=== PATIENT | male | born 1955 | race Caucasian/White ===

== ENCOUNTER 2018-04-24 20:07 | Inpatient (IN) ==
[2018-04-24] MEDS ORDERED: ONDANSETRON 4 MG/2 ML VIAL IV PRN (22:25)
[2018-04-24] MEDS ORDERED: ACETAMINOPHEN 325 MG TABLET PO PRN (22:25)
[2018-04-24] MEDS ORDERED: METOPROLOL TARTRATE 5 MG/5 ML VIAL IV ONE (23:00)
[2018-04-24] MEDS ORDERED: FUROSEMIDE 40 MG/4 ML VIAL IV ONE (23:00)
[2018-04-24] MEDS ORDERED: LEVOFLOXACIN INJ 750 MG in PREMIX 1 EACH IV SCH (23:00)
[2018-04-24] MEDS ORDERED: ALBUTEROL/IPRATROPIUM 3 ML NEB RESP TX PRN (23:05)
[2018-04-24] MEDS: CLINDAMYCIN INJ 600 MG in PREMIX 1 EACH IV SCH (23:19)
[2018-04-24] MEDS: PANTOPRAZOLE 40 MG VIAL IV SCH (23:54)
[2018-04-25] MEDS ORDERED: DILTIAZEM 50 MG/10 ML VIAL IV ONE (01:00)
[2018-04-25] MEDS ORDERED: DILTIAZEM INJ 100 MG in SODIUM CHLORIDE 0.9% 100 ML IV SCH (04:30)
[2018-04-25 05:21] LABS: Basophils % 0.1 % (0.0-0.8); Hematocrit 35.6 VOL% (42.0-52.0); Hemoglobin 11.8 GM/DL (14.0-18.0); Immature Granulocytes % 0.6 %; Immature Granulocytes Absolute 0.07 #; Lymphocytes # 0.9 10*3/uL (1.4-4.0); Lymphocytes % 8.6 % (21.2-54.2); Mean Corpuscular HGB Conc 33.1 GM/DL (32-36); Mean Corpuscular Hemoglobin 32 PG (27-34); Mean Corpuscular Volume 95.2 FL (87-102); Mean Platelet Volume 9.8 FL (9.6-12.0); Monocytes % 8.8 % (1.7-12.7); Neutrophils # 8.9 10*3/uL (1.4-7.4); Neutrophils % 81.9 % (38.7-73.9); Platelet Count 192 T/CUMM (130-400); Red Blood Count 3.74 MC/CUMM (3.8-5.5); Red Cell Distribution Width 13.5 % (9.3-17.3); White Blood Count 10.9 T/CUMM (4-12)
[2018-04-25 05:49] LABS: Bilirubin,Total 0.7 MG/DL (0.2-1.0); Calcium 8.8 MG/DL (8.5-10.1); Total Protein 6.2 G/DL (6.4-8.3)
[2018-04-25 05:50] LABS: Osmolality,Calculated 284.5 MOS/KG (273-304); Potassium 3.9 MMOL/L (3.5-5.1)
[2018-04-25] MEDS: CLINDAMYCIN INJ 600 MG in PREMIX 1 EACH IV SCH ×3 (06:15→22:36)
[2018-04-25] MEDS ORDERED: FUROSEMIDE 40 MG/4 ML VIAL IV SCH (08:00)
[2018-04-25] MEDS: PANTOPRAZOLE 40 MG VIAL IV SCH (09:04)
[2018-04-25] MEDS ORDERED: NITROGLYCERIN SL 0.4 MG TABLET SL PRN (10:10)
[2018-04-25] MEDS ORDERED: methylPREDNISolone SOD SUC 125 MG/2 ML VIAL IV ONE (10:14)
[2018-04-25] MEDS: ALBUTEROL/IPRATROPIUM 3 ML NEB RESP TX SCH ×2 (13:32→19:37)
[2018-04-25] MEDS: NICOTINE 21 MG/24 HR PATCH TRANSDERM SCH (14:52)
[2018-04-25 16:02] LABS: Apearance,Urine CLEAR (Clear); Bilirubin,Urine Negative (Negative); Blood, Urine Negative (Negative); Glucose,Urine (UA) Negative (Negative); Ketones,Urine Negative (Negative); Mucus,Urine Occasional /LPF (Occasional); Nitrite,Urine Negative (Negative); Protein,Urine Negative; RBC,Urine 4 /HPF (0-4); Squamous Epithelial Cell,Urine Occasional /HPF (0-10); Urine Specific Gravity 1.027 (1.001-1.035); WBC,Urine 2 /HPF (0-6)
[2018-04-25 16:04] LABS: Urine Color Dark Yellow (Yellow)
[2018-04-25] MEDS: LEVOFLOXACIN INJ 750 MG in PREMIX 1 EACH IV SCH (20:59)
[2018-04-25] MEDS: PRAVASTATIN 40 MG TABLET PO SCH (20:59)
[2018-04-25] MEDS: APIXABAN 5 MG TABLET PO SCH (20:59)
[2018-04-25] MEDS: BISOPROLOL 5 MG TABLET PO SCH (20:59)
[2018-04-25] MEDS: SUCRALFATE 1 GM TABLET PO SCH (20:59)
[2018-04-25] MEDS: PANTOPRAZOLE 40 MG TABLET PO SCH (20:59)
[2018-04-26] MEDS: ALBUTEROL/IPRATROPIUM 3 ML NEB RESP TX SCH ×4 (00:52→20:01)
[2018-04-26] MEDS: CLINDAMYCIN INJ 600 MG in PREMIX 1 EACH IV SCH ×2 (06:21→14:59)
[2018-04-26] MEDS: DILTIAZEM CD 240 MG CAPSULE PO SCH ×2 (07:42→09:35)
[2018-04-26] MEDS ORDERED: FUROSEMIDE 40 MG TABLET PO SCH (09:00)
[2018-04-26] MEDS: SUCRALFATE 1 GM TABLET PO SCH ×2 (09:32→20:57)
[2018-04-26] MEDS: BISOPROLOL 5 MG TABLET PO SCH ×2 (09:32→20:57)
[2018-04-26] MEDS: FUROSEMIDE 20 MG TABLET PO SCH (09:33)
[2018-04-26] MEDS: SPIRONOLACTONE 25 MG TABLET PO SCH (09:33)
[2018-04-26] MEDS: APIXABAN 5 MG TABLET PO SCH ×2 (09:33→20:57)
[2018-04-26] MEDS: predniSONE 20 MG TABLET PO SCH (09:33)
[2018-04-26] MEDS: ASPIRIN EC 81 MG TABLET PO SCH (09:33)
[2018-04-26] MEDS: NICOTINE 21 MG/24 HR PATCH TRANSDERM SCH (09:33)
[2018-04-26] MEDS: PANTOPRAZOLE 40 MG TABLET PO SCH ×2 (09:35→20:57)
[2018-04-26 11:31] LABS: Troponin I Only 0.097 NG/ML (0.00-0.045)
[2018-04-26] MEDS: PRAVASTATIN 40 MG TABLET PO SCH (20:57)
[2018-04-26] MEDS: LEVOFLOXACIN INJ 750 MG in PREMIX 1 EACH IV SCH (21:00)
[2018-04-27] MEDS: ALBUTEROL/IPRATROPIUM 3 ML NEB RESP TX SCH ×2 (00:45→07:23)
[2018-04-27] MEDS: CLINDAMYCIN INJ 600 MG in PREMIX 1 EACH IV SCH ×4 (01:26→22:45)
[2018-04-27 06:08] LABS: Troponin I Only 0.112 NG/ML (0.00-0.045)
[2018-04-27] MEDS ORDERED: DIGOXIN 0.25 MG TABLET PO SCH (08:30)
[2018-04-27] MEDS: SUCRALFATE 1 GM TABLET PO SCH ×2 (09:56→22:35)
[2018-04-27] MEDS: SPIRONOLACTONE 25 MG TABLET PO SCH (09:56)
[2018-04-27] MEDS: SOTALOL 80 MG TABLET PO SCH ×2 (09:57→20:44)
[2018-04-27] MEDS: PANTOPRAZOLE 40 MG TABLET PO SCH ×2 (09:57→20:43)
[2018-04-27 09:58] LABS: Hemoglobin 13.1 GM/DL (14.0-18.0)
[2018-04-27] MEDS: DILTIAZEM CD 240 MG CAPSULE PO SCH (09:58)
[2018-04-27] MEDS: ASPIRIN EC 81 MG TABLET PO SCH (10:00)
[2018-04-27] MEDS: FUROSEMIDE 20 MG TABLET PO SCH (10:00)
[2018-04-27] MEDS: APIXABAN 5 MG TABLET PO SCH ×2 (10:01→20:44)
[2018-04-27] MEDS: predniSONE 20 MG TABLET PO SCH (10:01)
[2018-04-27] MEDS: NICOTINE 21 MG/24 HR PATCH TRANSDERM SCH (10:02)
[2018-04-27] MEDS ORDERED: LEVALBUTEROL 1.25 MG/3 ML NEB RESP TX PRN (10:31)
[2018-04-27] MEDS: ALPRAZolam 0.5 MG TABLET PO SCH ×2 (13:45→20:44)
[2018-04-27] MEDS ORDERED: FUROSEMIDE 40 MG/4 ML VIAL IV ONE (13:47)
[2018-04-27] MEDS: PRAVASTATIN 40 MG TABLET PO SCH (20:44)
[2018-04-27] MEDS: FUROSEMIDE 40 MG/4 ML VIAL IV SCH (20:45)
[2018-04-27] MEDS: LEVOFLOXACIN INJ 750 MG in PREMIX 1 EACH IV SCH (20:53)
[2018-04-28 03:06] LABS: Basophils % 0.1 % (0.0-0.8); Eosinophils % 0.1 % (0.00-10.9); Hematocrit 36.1 VOL% (42.0-52.0); Hemoglobin 12.3 GM/DL (14.0-18.0); Immature Granulocytes % 0.4 %; Immature Granulocytes Absolute 0.04 #; Lymphocytes # 1.5 10*3/uL (1.4-4.0); Lymphocytes % 16.1 % (21.2-54.2); Mean Corpuscular HGB Conc 34.1 GM/DL (32-36); Mean Corpuscular Hemoglobin 32 PG (27-34); Mean Corpuscular Volume 93.3 FL (87-102); Mean Platelet Volume 9.8 FL (9.6-12.0); Monocytes # 0.8 10*3/uL (0.11-0.8); Monocytes % 9.1 % (1.7-12.7); NRBC # 0.02 10*3/uL; Neutrophils # 6.8 10*3/uL (1.4-7.4); Neutrophils % 74.2 % (38.7-73.9); Platelet Count 203 T/CUMM (130-400); Red Blood Count 3.87 MC/CUMM (3.8-5.5); Red Cell Distribution Width 13.6 % (9.3-17.3); White Blood Count 9.2 T/CUMM (4-12)
[2018-04-28 03:30] LABS: Calcium 8.3 MG/DL (8.5-10.1); Osmolality,Calculated 278.8 MOS/KG (273-304)
[2018-04-28] MEDS: CLINDAMYCIN INJ 600 MG in PREMIX 1 EACH IV SCH (07:19)
[2018-04-28] MEDS ORDERED: DIGOXIN 0.25 MG TABLET PO SCH (09:00)
[2018-04-28] MEDS: SUCRALFATE 1 GM TABLET PO SCH (09:41)
[2018-04-28] MEDS: SPIRONOLACTONE 25 MG TABLET PO SCH (09:41)
[2018-04-28] MEDS: DILTIAZEM CD 240 MG CAPSULE PO SCH (09:42)
[2018-04-28] MEDS: SOTALOL 80 MG TABLET PO SCH (09:42)
[2018-04-28] MEDS: predniSONE 20 MG TABLET PO SCH (09:42)
[2018-04-28] MEDS: PANTOPRAZOLE 40 MG TABLET PO SCH (09:42)
[2018-04-28] MEDS: ASPIRIN EC 81 MG TABLET PO SCH (09:42)
[2018-04-28] MEDS: APIXABAN 5 MG TABLET PO SCH (09:42)
[2018-04-28] MEDS: ALPRAZolam 0.5 MG TABLET PO SCH (09:43)
[2018-04-28] MEDS: FUROSEMIDE 20 MG TABLET PO SCH (09:43)
[2018-04-28] MEDS: NICOTINE 21 MG/24 HR PATCH TRANSDERM SCH (09:43)
[2018-04-28] MEDS: FUROSEMIDE 40 MG/4 ML VIAL IV SCH (09:43)
[2018-04-28] MEDS ORDERED: DILTIAZEM CD 120 MG CAPSULE PO SCH (10:21)
[2018-04-28 11:23] VITALS: BP 124/73
[2018-04-28] MEDS ORDERED: LEVOFLOXACIN 750 MG TABLET PO SCH (15:00)
== END 2018-04-28 12:23 | disposition home or self-care (01) | DRG 273 ==
LOC: N.TELEN 21:33 → SUATTDRO 21:33
PROVIDERS: ADMIT Internal Medicine; ATTEND Internal Medicine